=== PATIENT | female | born 1955 | race Caucasian/White ===

== ENCOUNTER 2017-10-11 11:33 | Emergency (ER) | payer MEDICARE, OTHER ==
[2017-10-11] MEDS ORDERED: LACTATED RINGERS 1,000 ML IVS ONE (13:27)
--- NOTE | 2017-10-11 13:33 | ED.PDOC ---
History of Present Illness - General Chief Complaint: Neuro Symptoms/Deficits Stated Complaint: weakness left side Time Seen by Provider: 10/11/17 13:09 Source: family Exam Limitations: no limitations - History of Present Illness Initial Comments: Dulce Pizano 62 y/o female with history of diarrhea x 2 days and vomiting 3 x folloewd by left sided weakness and some confusion was sent over here after she was seen initially at [facility] and advised to come over here.Family stated had imbibing more water recently. Occurred: other - 2 days ago Severity: moderate Injuries/Pain Location: no injury, other - NO FALL Reason for Fall: other - NO FALL Loss of Consciousness: no loss of consciousness Improving Factors: nothing Worsening Factors: nothing Associated Symptoms (Fall): other - see HPI Allergies/Adverse Reactions: Allergies NO KNOWN ALLERGY Allergy (Verified 10/11/17 12:23) Review of Systems - Review of Systems Constitutional: States: no symptoms reported EENTM: States: no symptoms reported Respiratory: States: no symptoms reported Cardiology: States: no symptoms reported Gastrointestinal/Abdominal: States: see HPI Musculoskeletal: States: no symptoms reported Skin: States: no symptoms reported Neurological: States: see HPI All other Systems: Reviewed and Negative, No Change from Baseline Past Medical History (General) - Patient Medical History Hx Seizures: Yes Hx Stroke: Yes Hx Hypertension: Yes Hx Other PMH: Yes - closed head injury Surgical History: other - c- sections - Vaccination History Hx Tetanus, Diphtheria Vaccination: Yes Hx Influenza Vaccination: No Hx Pneumococcal Vaccination: Yes - Social History Hx Tobacco Use: Yes Hx Alcohol Use: No - Female History Patient is a Female of Child Bearing Age (10 -59 yrs old): No Physical Exam - Physical Exam General Appearance: Alert, Comfortable, No apparent distress Head Injury: no evidence of injury Eye Exam: bilateral normal ENT Exam: hearing grossly normal, no evidence of ENT injury, no dental injury Peripheral Pulses: radial,right: 2+, radial,left: 2+ Cardiovascular/Respiratory: regular rate, rhythm, no M/R/G, normal peripheral pulses Gastrointestinal/Abdominal: normal bowel sounds, non tender, soft Back Exam: no CVA tenderness, no vertebral tenderness Extremity Exam: no evidence of injury Neurologic: no motor/sensory deficits, alert, other - pronator drift negative Skin Exam: normal color, warm/dry - Milton Coma Score Best Eye Response (Boyd): (4) open spontaneously Best Verbal Response (Boyd): (5) oriented Best Motor Response (Milton): (6) obeys commands Boyd Total: 15 Progress - Progress Progress: 10/11/17 13:57 Vital Signs - 8 hr 10/11/17 12:10 Temperature 96.8 F L Pulse Rate [ 48 L pulse ox] Respiratory 20 Rate Blood Pressure 114/63 [lef tarm] O2 Sat by Pulse 92 L Oximetry - Results/Orders Results/Orders: 10/11/17 12:35 UA [URINALYSIS] Stat 10/11/17 13:01 TSH [THYROID STIMULATING HORMONE] Stat 10/11/17 13:27 B-TYPE NATRIURETIC PEPTIDE/BNP Stat CARDIAC ENZYME GROUP Stat MAGNESIUM Stat URINE DRUG SCREEN, 7 ASSAY Stat 10/11/17 13:36 CLOSTRIDIUM DIFFICILE AG/TOXIN Urgent 10/11/17 13:50 EKG Assessment ONCE 10/11/17 14:00 EKG STAT 10/11/17 14:01 KCl 40 Meq/D5 1/2Ns [D5 1/2NS W/ KCL 40 meq/Liter] 1,000 ml IVS ONCE Laboratory Results - last 24 hr 10/11/17 10/11/17 10/11/17 13:01 13:01 13:01 WBC 10.7 RBC 3.27 L Hgb 11.1 L Hct 29.4 L MCV 89.9 MCH 33.9 H MCHC 37.9 H RDW 13.8 Plt Count 449 H MPV 7.8 Absolute Neuts (auto) 8.50 H Absolute Lymphs (auto) 1.70 Absolute Monos (auto) 0.50 Absolute Eos (auto) 0.00 Absolute Basos (auto) 0.10 Neutrophils % 79.2 H Lymphocytes % 15.5 L Monocytes % 4.5 Eosinophils % 0.3 L Basophils % 0.5 PT INR PTT (SP) Sodium 101 L* Potassium 2.3 L* Chloride 62 L* Carbon Dioxide 25 Anion Gap 16.3 BUN 13 Creatinine 0.97 BUN/Creatinine Ratio 13.4 Random Glucose 93 Serum Osmolality 204.8 L* Lactic Acid Calcium 8.2 L Magnesium Total Bilirubin 0.4 AST 31 ALT 16 Alkaline Phosphatase 203 H Creatine Kinase Serum Total Protein 6.6 Albumin 3.5 Globulin 3.1 Albumin/Globulin Ratio 1.1 Phenytoin 3.1 L 10/11/17 10/11/17 10/11/17 13:27 13:27 13:37 WBC RBC Hgb Hct MCV MCH MCHC RDW Plt Count MPV Absolute Neuts (auto) Absolute Lymphs (auto) Absolute Monos (auto) Absolute Eos (auto) Absolute Basos (auto) Neutrophils % Lymphocytes % Monocytes % Eosinophils % Basophils % PT 10.4 INR 1.04 PTT (SP) 34.5 H Sodium Cancelled Potassium Cancelled Chloride Cancelled Carbon Dioxide Cancelled Anion Gap Cancelled BUN Cancelled Creatinine Cancelled BUN/Creatinine Ratio Cancelled Random Glucose Cancelled Serum Osmolality Cancelled Lactic Acid 0.8 Calcium Cancelled Magnesium 1.3 L Total Bilirubin AST ALT Alkaline Phosphatase Creatine Kinase 674 H* Serum Total Protein Albumin Globulin Albumin/Globulin Ratio Phenytoin - EKG/XRAY/CT CT Ordered: Yes - head-no acute intracranial abnormalities Departure - Departure Clinical Impression: Acute hyponatremia, Hypokalemia, Hypomagnesemia Time of Disposition: 16:38 Disposition: Transfer to Hospital Condition: Fair Departure Forms: Patient Portal Self Enrollment Referrals: RASHMI DINERO [Primary Care Provider] - 1-2 Weeks Transfer to Outside Facility - Transfer Information Accepting Provider:: D/W Dr. Gael Schaffer Accepting Facility: [facility] Reason for Transfer: required specialist not available - ore tester
--- NOTE | 2017-10-11 13:46 | CT ---
EXAM DESCRIPTION: Head CLINICAL HISTORY: altered mental status, hearing loss COMPARISON: None available TECHNIQUE: Noncontrast head CT was performed with routine protocol. FINDINGS: Normal wilde-white matter differentiation. Small lacunar infarct in the right basal ganglia region appears chronic. Ventricles and sulci are normal for age. No high density hemorrhage, focal edema or shift of the midline. No sulcal effacement. Normal orbital contents. Basilar cisterns appear clear. Intact calvarium with no fracture or lytic lesion. Normal aeration of tympanic cavities and mastoid air cells. No fluid levels in the paranasal sinuses. Skull base appears intact. Symmetrical internal auditory canals. Coronal and sagittal reformatted images confirm the findings. IMPRESSION: No acute intracranial pathologic process. This exam was performed according to our departmental dose-optimization program, which includes automated exposure control, adjustment of the mA and/or kV according to patient size and/or use of iterative reconstruction technique. Total DLP equals 859.97 mGycm. Electronically signed by: Salvador Crabtree MD 10/11/2017 1:45 PM CDT
[2017-10-11] MEDS ORDERED: KCL 40 MEQ/D5 1/2NS 1,000 ML IVS PRN (13:58)
[2017-10-11] MEDS ORDERED: KCL 40 MEQ/D5 1/2NS 1,000 ML IVS ONE (14:01)
[2017-10-11] MEDS ORDERED: MAGNESIUM SULFATE PREMIX 2GM 2 GM in PREMIX BAG 1 BAG IVPB ONE (14:23)
[2017-10-11] MEDS ORDERED: MAGNESIUM SULFATE PREMIX 2GM 50 ML IVPB ONE (14:40)
[2017-10-11] MEDS ORDERED: POTASSIUM CHLORIDE 20 MEQ TAB PO ONE (16:41)
[2017-10-11] MEDS ORDERED: SODIUM CHLORIDE 0.9% 500ML 500 ML IVS ONE (16:42)
[2017-10-11 16:53] VITALS: BP 145/80; TEMP 96.9; O2SAT 94
== END 2017-10-11 17:15 | disposition short-term general hospital (02) ==
LOC: ER 11:33
DX: E87.1 Hypo-osmolality and hyponatremia (principal); E87.6 Hypokalemia; E83.42 Hypomagnesemia; R53.1 Weakness; R19.7 Diarrhea, unspecified; R11.10 Vomiting, unspecified; R56.9 Unspecified convulsions; I10 Essential (primary) hypertension; Z86.73 Personal history of transient ischemic attack (TIA), and cerebral infarction without residual deficits
CPT/HCPCS: 36415; 70450; 80053; 80185; 80307; 81001; 82550; 82553; 83605; 83735; 83880; 84443; 84484; 85025; 85610; 85730; 93005; J3475; J7040; J7120